=== PATIENT | female | born 1990 | race Caucasian/White ===

== ENCOUNTER 2024-01-30 03:07 | Emergency (ER) | payer OTHER, SELFPAY ==
[2024-01-30 03:10] VITALS: BP 133/82
[2024-01-30 03:46] VITALS: BMI 26.3
--- NOTE | 2024-01-30 03:50 | ED.GENMED ---
History of Present Illness
<FLORENTIN Weldon - Last Filed: 01/30/24 06:39>
General
Chief Complaint: Throat Problem
Source: patient
Exam Limitations: none
Time Seen by Provider: 01/30/24 03:33
Nursing documentation reviewed up to this point in time: agreed with
History of Present Illness
History of Present Illness:
Patient is a 33yo F who presents to the ED w/ L neck swelling and throat pain x2hrs. Pt states she had no throat pain when going to bed but woke up at 2:15am to severe throat pain and neck swelling. She denies any trouble breathing. Admits to neck
pain and body aches x1 day. When asked about recent illness she states her young children are always sick so she is as well. She denies fever, congestion, and rhinorrhea. Admits to chronic cough due to smoking marijuana and vaping. She denies abd
pain, N/V/D/C, ZAMUDIO, chest pain, and ear pain.
Past History
<FLORENTIN Weldon - Last Filed: 01/30/24 06:39>
Past History
ED Past Medical History: Other (ADHD)
ED Past Surgical History:
Social History
Tobacco: Smoker
Alcohol: Occasional
Family History
Family History: Negative Diabetes, Hypertension or CAD
Review of Systems
<FLORENTIN Weldon - Last Filed: 01/30/24 06:39>
Review of Systems
Constitutional: Denies fever, fatigue or chills
EENT: Reports sore throat; Denies runny nose
Respiratory: Reports cough; Denies trouble breathing
Cardiac: Denies chest pain or palpitations
ABD/GI: Denies abdominal pain, nausea, vomiting, diarrhea or constipated
: Denies dysuria
Musculoskeletal: Reports joint pain, muscle pain and neck pain
Skin: Denies rash
Neurological: Denies dizzy, headache, weakness or numbness
Phy Exam
<FLORENTIN Weldon - Last Filed: 01/30/24 06:39>
General Physical Exam
General Presentation: moderate distress
General age: appears stated age
General Skin: warm and dry
General Habitus: normal
General Mental: tearful
ENT Exam
ENT Exam: normocephalic, lymphnodes (no posterior cervical LAD appreciated. ), pharyngeal erythema, swallowing well and other (moderate swelling of L anterior neck; TTP of swollen area. No redness or warmth. )
Additional ENT: voice is scratchy
Cardiovascular Exam
Cardiovascular Exam: regular rate/rhythm, no edema, no gallop and no murmur
Pulmonary Exam
Pulmonary Exam: lungs clear, no respiratory distress, no rales, no crackles, no rhonchi and no wheezing
Gastrointestinal Exam
Gastrointestinal Exam: normal bowel sounds, non tender, soft, no organomegaly and non distended
Neurological Exam
Neurological Exam: alert, oriented x3, no motor deficits, no sensory deficits and speech normal
Course
<Merari Lopes [facility] - Last Filed: 01/30/24 06:39>
Orders/Labs/Results
Orders:
Orders
01/30/24 03:50
CT Neck W/o Iv Contrast Urgent
Comment:
Reason For Exam: swelling
01/30/24 03:56
CBC/With Diff [Complete Blood Count/With Diff] Urgent
CMP [Comprehensive Metabolic Panel] Urgent
01/30/24 05:06
Amoxicillin 875 mg/Clav 125 mg [Augmentin 875 mg/125 mg] 1 tablet PO NOW STA
Abnormal Lab Results
01/30/24
03:56
RBC 4.17 L 10^6/uL
(4.20-5.40)
Hct 36.0 L %
(37.0-47.0)
Monocytes % 9.8 H %
(1.7-9.3)
Carbon Dioxide 20 L mmol/L
(22-30)
BUN 19 H mg/dl
(7-17)
Glucose 109 H mg/dl
(70-99)
01/30/24 03:56
01/30/24 03:56
Vital Signs
Initial and Last Documented VS:
Initial Vital Signs
Temp Pulse Resp BP Pulse Ox
98 F 66 20 133/82 100
01/30/24 03:10 01/30/24 03:10 01/30/24 03:10 01/30/24 03:10 01/30/24 03:10
Last Documented Vital Signs
Temp Pulse Resp BP Pulse Ox
98 F 64 14 103/70 98
01/30/24 03:10 01/30/24 05:20 01/30/24 05:20 01/30/24 05:20 01/30/24 05:20
<Gilberto Galvan, DO - Last Filed: 01/30/24 05:11>
Orders/Labs/Results
Orders:
Orders
01/30/24 03:50
CT Neck W/o Iv Contrast Urgent
Comment:
Reason For Exam: swelling
01/30/24 03:56
CBC/With Diff [Complete Blood Count/With Diff] Urgent
CMP [Comprehensive Metabolic Panel] Urgent
01/30/24 05:06
Amoxicillin 875 mg/Clav 125 mg [Augmentin 875 mg/125 mg] 1 tablet PO NOW STA
Abnormal Lab Results
01/30/24
03:56
RBC 4.17 L 10^6/uL
(4.20-5.40)
Hct 36.0 L %
(37.0-47.0)
Monocytes % 9.8 H %
(1.7-9.3)
Carbon Dioxide 20 L mmol/L
(22-30)
BUN 19 H mg/dl
(7-17)
Glucose 109 H mg/dl
(70-99)
01/30/24 03:56
01/30/24 03:56
Vital Signs
Initial and Last Documented VS:
Initial Vital Signs
Temp Pulse Resp BP Pulse Ox
98 F 66 20 133/82 100
01/30/24 03:10 01/30/24 03:10 01/30/24 03:10 01/30/24 03:10 01/30/24 03:10
Last Documented Vital Signs
Temp Pulse Resp BP Pulse Ox
98 F 64 14 103/70 98
01/30/24 03:10 01/30/24 05:20 01/30/24 05:20 01/30/24 05:20 01/30/24 05:20
<FLORENTIN Weldon - Last Filed: 01/30/24 06:39>
MDM/Problems Addressed
Differential Diagnosis Includes:
parotitis, peritonsillar abscess, retropharyngeal abscess
<FLORENTIN Weldon - Last Filed: 01/30/24 06:39>
*Critical Care Note
Total Time (30-74mins, 75-104mins- exclusive of procedures): Not Applicable
ED Attending Note
<FLORENTIN Weldon - Last Filed: 01/30/24 06:39>
-
Portions of this chart may have been created with voice recognition software.� Occasional wrong word or��sound alike� substitutions may have occurred due to the inherent limitations of voice recognition software.
<Gilberto Galvan DO - Last Filed: 01/30/24 05:11>
ED Attending Note
Patient seen and examined by attending physician: Yes
I performed the substantive portion of visit, reviewed & personally made and approve the management plan that is documented in note by myself or LATRELL.: Yes
ED Attending Note:
Patient with left-sided lower throat/mouth swelling that came on suddenly tonight. Was eating vegan sour candies right before bed. Awakened a short time later with severe pain and swelling to the left side of her neck. Denies fever, chills,
nausea or vomiting. Reports no trouble swallowing. Patient was seen in conjunction with the PA student. I have reviewed and agree with the history and treatment plan presented. On my independent physical exam, patient is awake, alert, and
oriented x3, no acute distress. Left sided neck is slightly swollen. Dentition is intact she does have a filling in her left bottom molar. Uvula is midline. Tonsils are red noninjected. There is no cobblestoning or discharge to the back of the
throat. There are no signs of, or dental infection. There is no obvious parotid stone. Lungs are clear to auscultation bilaterally. Skin is warm and dry. Moves all 4 extremities.
Discharge Plan
Departure
Patient Disposition: Home (Routine Discharge)
Date of Disposition: 01/30/24
Time of Disposition: 05:09
Patient with high blood pressure during this ER visit?: Yes
Condition: Good
Discharge Problem:
Sialadenitis
Instructions: Sore Throat, Adult (DC), BLOOD PRESSURE
Prescriptions:
New
amoxicillin-pot clavulanate 875-125 mg tablet
1 tab PO BID 10 Days Qty: 20 0RF
No Action
prenat.vits,edy,fxk-dwla-uhzle [ Vitamin] 1 EACH tablet
1 tab PO DAILY
ibuprofen 600 MG tablet
800 mg PO Q6HPRN PRN (Reason: moderate pain/cramps) Qty: 30 0RF
ondansetron 4 MG tablet,disintegrating
4 mg PO TIDPRN PRN (Reason: nausea) Qty: 10 0RF
ondansetron 4 mg tablet,disintegrating
4 mg PO TID PRN (Reason: nausea and vomiting) Qty: 10 0RF
Referrals:
Wanda Monson PA-C [Family Provider] -
Activity Restrictions/Additional Instructions:
It was a pleasure meeting you and taking part in your care. We hope for your continued healing and wellness.
Please read discharge instructions in their entirety. However, they are for general education and may not describe your exact diagnosis at discharge. Information on your ER visit and medical conditions were discussed with you along with appropriate
follow up information...
If indicated, please take your medications as instructed and indicated on discharge paperwork.
Please schedule a follow up appointment as directed. Call to schedule an appointment
Please return to the emergency department with ANY change in, persisting, or worsening of symptoms. If any of your symptoms do not improve, or persist, or become more severe within 6-12 hours, please return to the emergency department for further
care.
Please return to the emergency department if you develop a headache, neck pain/stiffness, fever greater than 100.4F, chest pain, shortness of breath, persistent nausea, vomiting, slurred speech, difficulty walking, numbness/tingling, weakness, signs
of infection or any other symptoms that are worrisome to you.
If you have any questions or concerns please do not hesitate to call the Hospital at or E-mail me directly at [email or web address]
Interventions
Interventions:
*Risk Screen - Suicide Last Done: 01/30/24 03:10
*General Assessment Last Done: 01/30/24 03:10
*Neglect/Abuse Screening Last Done: 01/30/24 03:10
ED- Fall Risk Assessment Last Done: 01/30/24 03:10
*ED COVID-19 Vaccine History Last Done: 01/30/24 03:10
*Nursing Disposition Last Done: 01/30/24 05:30
ED-EENT Assessment Last Done: 01/30/24 03:46
ED- Pulmonary Assessment Last Done: 01/30/24 03:46
Discharge Date and Time
Discharge Date/Time: 01/30/24 05:30
Print Language: NEPALI
[2024-01-30 04:18] LABS: % Basophils 1.4 % (0-2); % Eosinophils 3.7 % (0-6); % Immature Granulocytes 0.3 % (0-0.5); % Lymphocytes 28.4 % (20.5-51.1); % Monocytes 9.8 % (1.7-9.3); % Neutrophils 56.4 % (42.2-75.2); Absolute Basophils 0.1 10^3/uL (0-0.2); Absolute Eosinophils 0.2 10^3/uL (0-0.7); Absolute Lymphocytes 1.8 10^3/uL (1.2-3.4); Absolute Monocytes 0.6 10^3/uL (0.1-0.6); Absolute Neutrophils 3.6 10^3/uL (1.4-6.5); Hemoglobin 12.9 g/dL (12.0-16.0); Mean Corp Hgb Conc. 35.8 g/dL (33.0-37.0); Mean Corpuscular Hgb 30.9 pg (27.0-31.0); Mean Corpuscular Volume 86.3 fL (81.0-99.0); Mean Platelet Volume 10.2 fL (7.4-10.4); Nucleated Red Blood Cells % 0 %; Platelet Count 358 10^3/uL (130-400); Red Blood Cell Count 4.17 10^6/uL (4.20-5.40); Red Cell Dist. Width 12.1 % (11.5-14.5); White Blood Cell Count 6.4 10^3/uL (4.8-10.8)
[2024-01-30 04:26] LABS: ALT (SGPT) 16 U/L (0-35); AST (SGOT) 20 U/L (14-36); Albumin 4.1 g/dl (3.5-5.0); Alkaline Phosphatase 52 U/L (38-126); Blood Urea Nitrogen 19 mg/dl (7-17); Calcium 8.9 mg/dl (8.4-10.2); Carbon Dioxide 20 mmol/L (22-30); Chloride 105 mmol/L (98-107); Estimated Creatinine Clearance 85 ml/min; Glucose 109 mg/dl (70-99); Potassium 4.2 mmol/L (3.5-5.1); Sodium 138 mmol/L (135-145); Total Bilirubin 0.4 mg/dl (0.2-1.3); Total Protein 6.6 g/dl (6.3-8.2); eGFR > 60.00
[2024-01-30 05:20] VITALS: BP 103/70
[2024-01-30] MEDS: AUGMENTIN 875 MG/125 MG 1 TABLET PO (05:23)
== END 2024-01-30 05:30 | disposition home or self-care (01) ==
LOC: EMR 03:07
PROVIDERS: EMERGENCY PHYSICIAN Student in an Organized Health Care Education/Training Program; FAMILY PHYSICIAN Physician Assistant
DX: K11.20 Sialoadenitis, unspecified (principal); F17.200 Nicotine dependence, unspecified, uncomplicated
CPT/HCPCS: 99284; 70490; 80053; 85025